=== PATIENT | female | born 1960 ===

== ENCOUNTER 2019-02-09 15:14 | Emergency (ER) | payer BC ==
[2019-02-09] MEDS ORDERED: Ondansetron 4 MG/2 ML SDV IVPUSH ONE (15:20)
[2019-02-09] MEDS ORDERED: Sodium Chloride 0.9% 2.5 ML Syringe FLUSH PRN ×2 (15:20→16:39)
[2019-02-09] MEDS ORDERED: HYDROmorphone 2 MG/ML Syringe IVPUSH ONE ×2 (15:20→16:14)
[2019-02-09] MEDS ORDERED: Sodium Chloride 0.9% 10 ML Syringe FLUSH PRN ×2 (15:20→16:39)
--- NOTE | 2019-02-09 15:35 | EDM.PDOC ---
ED HPI GENERAL MEDICAL PROBLEM - General Chief Complaint: Back Pain or Injury Stated Complaint: INJURY TO BACK Time Seen by Provider: 02/09/19 15:15 Source of Information: Reports: Patient History Limitations: Reports: No Limitations - History of Present Illness INITIAL COMMENTS - FREE TEXT/NARRATIVE: History of present illness: Patient was knocked down by a an adult size cow and then the cow rolled her over when she was on the ground. She was ambulatory on scene and complains of severe lower back pain. She denies any numbness, tingling, abdominal, chest or extremity pain. Review of systems: As per history of present illness and below otherwise all systems reviewed and negative. Past medical history: As per history of present illness and as reviewed below otherwise noncontributory. Surgical history: As per history of present illness and as reviewed below otherwise noncontributory. Social history: No reported history of drug or alcohol abuse. Family history: As per history of present illness and as reviewed below otherwise noncontributory. Physical exam: General: Well developed, well nourished in NAD HEENT: Atraumatic, normocephalic, pupils reactive, negative for conjunctival pallor or scleral icterus, mucous membranes moist, throat clear, neck supple, nontender, trachea midline. Lungs: Clear to auscultation, breath sounds equal bilaterally, chest nontender. Heart: S1S2, regular, negative for clicks, rubs, or JVD. Abdomen: NABS, Soft, nondistended, nontender. Negative for masses or hepatosplenomegaly. Negative for costovertebral tenderness. Pelvis: Stable nontender. Genitourinary: Deferred. Rectal: Normal sphincter tone sensation intact Extremities: Atraumatic, negative for cords or calf pain. Neurovascular unremarkable. Neuro: Awake, alert, oriented. Cranial nerves II through XII unremarkable. Cerebellum unremarkable. Motor and sensory unremarkable throughout. Exam nonfocal. Skin:warm and dry Diagnostics: CT L-spine-. Moderate burst fracture of L4 with retropulsion causing severe spinal stenosis Therapeutics: Zak Stewart Foley ED Course: 16:30 Patient prefers to go to [place] since their son lives there. Ming Weberdaryn was contacted and is full 16:32 [facility] was contacted Dr. Espinal-states she is appropriate for transfer after he reviewed films. Impression: L4 burst fracture with retropulsion Prescriptions: Plan: Transfer to [facility] by ken Frederick from trauma accepts patient Definitive disposition and diagnosis as appropriate pending reevaluation and review of above. back Pain Score (Numeric/FACES): 10 - Related Data Allergies Allergy/AdvReac Type Severity Reaction Status Date / Time No Known Allergies Allergy Verified 05/18/14 11:45 Home Meds: Home Meds Calcium Carb & Citrate/Vit D3 [Citracal + D ER] 2 tab PO DAILY 02/09/19 [History ] Omeprazole Magnesium [Prilosec Otc] 20 mg PO DAILY 02/09/19 [History] Something For Hot Flashes 1 tab PO DAILY 02/09/19 [History] Past Medical History - Past Health History Medical/Surgical History: Denies Medical/Surgical History - Infectious Disease History Infectious Disease History: Reports: Chicken Pox, Mumps Social & Family History - Family History Family Medical History: Noncontributory - Tobacco Use Smoking Status *Q: Never Smoker - Recreational Drug Use Recreational Drug Use: No ED ROS GENERAL - Review of Systems Review Of Systems: ROS reveals no pertinent complaints other than HPI. ED EXAM, GENERAL - Physical Exam Exam: See Below (See history of present illness) Course - Vital Signs Last Recorded V/S: Last Vital Signs Temp 97.8 F 02/09/19 15:27 Pulse 71 02/09/19 17:45 Resp 16 02/09/19 17:45 BP 121/64 02/09/19 17:45 Pulse Ox 98 02/09/19 17:45 - Orders/Labs/Meds Orders: Active Orders 24 hr Category Date Time Status Insert Medrano Catheter [Insert Urinary Catheter] [OM.PC] Care 02/09/19 16:40 Ordered Stat Urinary Catheter Assessment [RC] ASDIRECTED Care 02/09/19 16:41 Active Saline Lock Insert [OM.PC] Stat Oth 02/09/19 15:20 Ordered Saline Lock Insert [OM.PC] Stat Oth 02/09/19 16:39 Ordered Labs: Laboratory Tests 02/09/19 02/09/19 02/09/19 Range/Units 15:30 15:30 15:30 WBC 9.24 (4.0-11.0) K/uL RBC 4.47 (4.30-5.90) M/uL Hgb 13.7 (12.0-16.0) g/dL Hct 41.1 (36.0-46.0) % MCV 91.9 (80.0-98.0) fL MCH 30.6 (27.0-32.0) pg MCHC 33.3 (31.0-37.0) g/dL RDW Std Deviation 48.2 (28.0-62.0) fl RDW Coeff of Cailin 14 (11.0-15.0) % Plt Count 182 (150-400) K/uL MPV 10.50 (7.40-12.00) fL Neut % (Auto) 81.4 H (48.0-80.0) % Lymph % (Auto) 14.2 L (16.0-40.0) % Henry % (Auto) 3.9 (0.0-15.0) % Eos % (Auto) 0.4 (0.0-7.0) % Baso % (Auto) 0.1 (0.0-1.5) % Neut # (Auto) 7.5 H (1.4-5.7) K/uL Lymph # (Auto) 1.3 (0.6-2.4) K/uL Henry # (Auto) 0.4 (0.0-0.8) K/uL Eos # (Auto) 0.0 (0.0-0.7) K/uL Baso # (Auto) 0.0 (0.0-0.1) K/uL Nucleated RBC % 0.0 /100WBC Nucleated RBCs # 0 K/uL INR 0.96 APTT 23.6 (18.6-31.3) SEC Sodium 141 (136-145) mmol/L Potassium 4.1 (3.5-5.1) mmol/L Chloride 105 (98-107) mmol/L Carbon Dioxide 27.9 (21.0-32.0) mmol/L BUN 21 H (7.0-18.0) mg/dL Creatinine 1.1 H (0.6-1.0) mg/dL Est Cr Clr Drug Dosing 51.55 mL/min Estimated GFR (MDRD) 50.8 ml/min Glucose 127 H (74-106) mg/dL Calcium 9.2 (8.5-10.1) mg/dL Total Bilirubin 0.2 (0.2-1.0) mg/dL AST 27 (15-37) IU/L ALT 30 (14-63) IU/L Alkaline Phosphatase 96 (46-116) U/L Total Protein 7.4 (6.4-8.2) g/dL Albumin 4.0 (3.4-5.0) g/dL Globulin 3.4 (2.6-4.0) g/dL Albumin/Globulin Ratio 1.2 (0.9-1.6) Lipase 175 (73-393) U/L Urine Color Urine Appearance Urine pH (5.0-8.0) Ur Specific [place] (1.001-1.035) Urine Protein (NEGATIVE) mg/dL Urine Glucose (UA) (NEGATIVE) mg/dL Urine Ketones (NEGATIVE) mg/dL Urine Occult Blood (NEGATIVE) Urine Nitrite (NEGATIVE) Urine Bilirubin (NEGATIVE) Urine Urobilinogen (<2.0) EU/dL Ur Leukocyte Esterase (NEGATIVE) Urine RBC (0-2/HPF) Urine WBC (0-5/HPF) Ur Epithelial Cells (NONE-FEW) Urine Bacteria (NEGATIVE) 02/09/19 Range/Units 16:55 WBC (4.0-11.0) K/uL RBC (4.30-5.90) M/uL Hgb (12.0-16.0) g/dL Hct (36.0-46.0) % MCV (80.0-98.0) fL MCH (27.0-32.0) pg MCHC (31.0-37.0) g/dL RDW Std Deviation (28.0-62.0) fl RDW Coeff of Cailin (11.0-15.0) % Plt Count (150-400) K/uL MPV (7.40-12.00) fL Neut % (Auto) (48.0-80.0) % Lymph % (Auto) (16.0-40.0) % Henry % (Auto) (0.0-15.0) % Eos % (Auto) (0.0-7.0) % Baso % (Auto) (0.0-1.5) % Neut # (Auto) (1.4-5.7) K/uL Lymph # (Auto) (0.6-2.4) K/uL Henry # (Auto) (0.0-0.8) K/uL Eos # (Auto) (0.0-0.7) K/uL Baso # (Auto) (0.0-0.1) K/uL Nucleated RBC % /100WBC Nucleated RBCs # K/uL INR APTT (18.6-31.3) SEC Sodium (136-145) mmol/L Potassium (3.5-5.1) mmol/L Chloride (98-107) mmol/L Carbon Dioxide (21.0-32.0) mmol/L BUN (7.0-18.0) mg/dL Creatinine (0.6-1.0) mg/dL Est Cr Clr Drug Dosing mL/min Estimated GFR (MDRD) ml/min Glucose (74-106) mg/dL Calcium (8.5-10.1) mg/dL Total Bilirubin (0.2-1.0) mg/dL AST (15-37) IU/L ALT (14-63) IU/L Alkaline Phosphatase (46-116) U/L Total Protein (6.4-8.2) g/dL Albumin (3.4-5.0) g/dL Globulin (2.6-4.0) g/dL Albumin/Globulin Ratio (0.9-1.6) Lipase (73-393) U/L Urine Color YELLOW Urine Appearance CLEAR Urine pH 7.0 (5.0-8.0) Ur Specific [place] 1.015 (1.001-1.035) Urine Protein NEGATIVE (NEGATIVE) mg/dL Urine Glucose (UA) NEGATIVE (NEGATIVE) mg/dL Urine Ketones TRACE H (NEGATIVE) mg/dL Urine Occult Blood NEGATIVE (NEGATIVE) Urine Nitrite NEGATIVE (NEGATIVE) Urine Bilirubin NEGATIVE (NEGATIVE) Urine Urobilinogen 0.2 (<2.0) EU/dL Ur Leukocyte Esterase NEGATIVE (NEGATIVE) Urine RBC 0-1 (0-2/HPF) Urine WBC 0-1 (0-5/HPF) Ur Epithelial Cells OCCASIONAL (NONE-FEW) Urine Bacteria RARE (NEGATIVE) Meds: Medications Discontinued Medications Generic Name Dose Route Start Last Admin Trade Name Freq PRN Reason Stop Dose Admin Hydromorphone HCl 0.5 mg 02/09/19 15:20 02/09/19 15:38 Dilaudid IVPUSH 02/09/19 15:21 0.5 mg ONETIME ONE Administration Hydromorphone HCl 0.5 mg 02/09/19 16:14 02/09/19 16:23 Dilaudid IVPUSH 02/09/19 16:15 0.5 mg ONETIME ONE Administration Ketorolac Tromethamine 30 mg 02/09/19 16:00 Toradol IVPUSH 02/09/19 16:01 ONETIME ONE Ondansetron HCl 4 mg 02/09/19 15:20 02/09/19 15:40 Zofran IVPUSH 02/09/19 15:21 4 mg ONETIME ONE Administration Sodium Chloride 10 ml 02/09/19 15:20 02/09/19 16:23 Saline Flush FLUSH 10 ml ASDIRECTED PRN Administration Keep Vein Open Sodium Chloride 2.5 ml 02/09/19 15:20 02/09/19 16:24 Saline Flush FLUSH 2.5 ml ASDIRECTED PRN Administration Keep Vein Open Sodium Chloride 10 ml 02/09/19 16:39 Saline Flush FLUSH ASDIRECTED PRN Keep Vein Open Sodium Chloride 2.5 ml 02/09/19 16:39 Saline Flush FLUSH ASDIRECTED PRN Keep Vein Open Departure - Departure Time of Disposition: 17:30 Disposition: DC/Tfer to Acute Hospital 02 Reason for Transfer *Q: Other Condition: Serious Clinical Impression: Burst fracture of lumbar vertebra Qualifiers: Encounter type: initial encounter Fracture type: closed Qualified Code(s): S32.001A - Stable burst fracture of unspecified lumbar vertebra, initial encounter for closed fracture Referrals: PCP,Unknown [Primary Care Provider] - Forms: ED Department Discharge - My Orders Last 24 Hours: My Active Orders 02/09/19 15:20 Saline Lock Insert [OM.PC] Stat 02/09/19 16:39 Saline Lock Insert [OM.PC] Stat 02/09/19 16:40 Insert Medrano Catheter [Insert Urinary Catheter] [OM.PC] Stat 02/09/19 16:41 Urinary Catheter Assessment [RC] ASDIRECTED - Assessment/Plan Last 24 Hours: My Active Orders 02/09/19 15:20 Saline Lock Insert [OM.PC] Stat 02/09/19 16:39 Saline Lock Insert [OM.PC] Stat 02/09/19 16:40 Insert Medrano Catheter [Insert Urinary Catheter] [OM.PC] Stat 02/09/19 16:41 Urinary Catheter Assessment [RC] ASDIRECTED
[2019-02-09] MEDS ORDERED: Ketorolac 30 MG/ML SDV IVPUSH ONE (16:00)
--- NOTE | 2019-02-09 16:20 | CT ---
EXAMINATION: CT lumbar spine HISTORY: Pain COMPARISON: None TECHNIQUE: Axial CT imaging obtained through the lumbar spine without contrast. FINDINGS: There is a moderate burst fracture of the L4 vertebral body with retropulsion of fragments. This results in at least moderate to severe spinal canal stenosis at this level. There is a vertical fracture through the right lamina of L4 also noted, minimally displaced. Remaining osseous structures appear intact. Bone mineralization is otherwise normal. The SI joints are symmetric. Visualized retroperitoneal structures are normal. IMPRESSION: 1. Moderate burst fracture of the L4 vertebral body with retropulsion into the spinal canal resulting in moderate to severe spinal canal stenosis. 2. There is a vertical component extending into the right lamina which is essentially nondisplaced.
--- NOTE | 2019-02-09 17:32 | CR ---
INDICATION: Pain TECHNIQUE: AP pelvis. COMPARISON: none FINDINGS: The hips are anatomically aligned. 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 There is no evidence of a fracture or intrinsic bone lesion within the pelvis. Small calcified phleboliths are noted within the lower pelvis. 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 Dictated by Domenico Breen MD @ Feb 09 2019 5:30PM Signed by Dr. Domenico Breen @ Feb 09 2019 5:31PM
== END 2019-02-09 18:17 ==
LOC: MW.ED 15:14
DX: S32.001A Stable burst fracture of unspecified lumbar vertebra, initial encounter for closed fracture (principal); Z79.899 Other long term (current) drug therapy; W55.22XA Struck by cow, initial encounter
CPT/HCPCS: 36415; 51702; 72131; 72170; 80053; 81001; 83690; 85025; 85610; 85730; 96374; 96375; 96376; 99285; J1170; J2405; 99284